=== PATIENT | male | born 1970 | race African-American/Black ===

== ENCOUNTER 2017-04-14 09:53 | Emergency (ER) | payer MEDICAID ==
[~2017-04-14] VITALS: Ht 188 cm; Wt 79.0 kg
[~2017-04-14 09:53] MED LIST: ALBU05; ALBU2.5V13 IH; FLUT1DIS IH; LEVO500T15 PO; MED4 GT; [UNRECOGNIZED DRUG - REMARK]; [UNRECOGNIZED DRUG - REMARK]
[2017-04-14 10:25] VITALS: BP 134/90
== END 2017-04-14 10:55 | disposition home or self-care (01) ==
LOC: ER 10:22
DX: T85.9XXA Unspecified complication of internal prosthetic device, implant and graft, initial encounter (principal); I10 Essential (primary) hypertension; J45.909 Unspecified asthma, uncomplicated; F17.200 Nicotine dependence, unspecified, uncomplicated; F12.10 Cannabis abuse, uncomplicated; Z98.890 Other specified postprocedural states
CPT/HCPCS: 99284; Z7610

== ENCOUNTER 2018-01-06 02:56 | Emergency (ER) | payer MEDICAID ==
[~2018-01-06] VITALS: Ht 188 cm; Wt 77.2 kg
[~2018-01-06 02:56] MED LIST changes: -LEVO500T15 PO; +LEVO500T2 PO
[2018-01-06 03:00] VITALS: BP 117/74
== END 2018-01-06 04:45 | disposition left against medical advice (07) ==
LOC: ER 03:18
DX: Z53.21 Procedure and treatment not carried out due to patient leaving prior to being seen by health care provider (principal)

== ENCOUNTER 2018-01-06 07:29 | Emergency (ER) | payer MEDICAID ==
[~2018-01-06] VITALS: Ht 188 cm; Wt 87.0 kg
[2018-01-06] MEDS ORDERED: LIDOCAINE HCL 1% 20ML VIAL (Pyxis) INJ INFIL ONE (08:00)
[2018-01-06] MEDS ORDERED: TETANUS, DIPHTHERIA, PERTUSSIS VAC/PF 0.5ML (>7YR OLD) IM ONE (08:00)
[2018-01-06 10:01] VITALS: BP 130/81
[2018-01-06] MEDS ORDERED: BACITRACIN ZINC OINT UDPKT TOP ONE (11:30)
== END 2018-01-06 11:43 | disposition home or self-care (01) ==
LOC: ER 07:50
DX: S51.011A Laceration without foreign body of right elbow, initial encounter (principal); J45.909 Unspecified asthma, uncomplicated; Z87.891 Personal history of nicotine dependence; V89.2XXA Person injured in unspecified motor-vehicle accident, traffic, initial encounter; Y93.89 Activity, other specified; Y92.89 Other specified places as the place of occurrence of the external cause; Y99.8 Other external cause status
CPT/HCPCS: 12001; 90471; 90715; 99283; J3490; Z7610

== ENCOUNTER 2018-02-23 10:53 | Emergency (ER) | payer MEDICAID ==
[~2018-02-23 10:53] MED LIST changes: -FLUT1DIS IH; -MED4 GT
[2018-02-23 12:52] VITALS: BP 147/90
== END 2018-02-23 13:11 | disposition home or self-care (01) ==
LOC: ER 13:03
DX: Z48.02 Encounter for removal of sutures (principal); I10 Essential (primary) hypertension; Z87.891 Personal history of nicotine dependence; X58.XXXD Exposure to other specified factors, subsequent encounter
CPT/HCPCS: 99281

== ENCOUNTER 2019-11-18 12:55 | Emergency (ER) | payer MEDICAID ==
[~2019-11-18] VITALS: Ht 188 cm; Wt 82.0 kg
[2019-11-18] MEDS ORDERED: IBUPROFEN 800MG TABLET PO ONE (16:15)
[2019-11-18] MEDS ORDERED: ACETAMINOPHEN 500MG TABLET PO ONE (16:15)
[2019-11-18 17:02] VITALS: BP 132/74
== END 2019-11-18 17:06 | disposition home or self-care (01) ==
LOC: ER 12:55
DX: M76.32 Iliotibial band syndrome, left leg (principal); J45.909 Unspecified asthma, uncomplicated; Z91.81 History of falling; Z90.49 Acquired absence of other specified parts of digestive tract; Z91.09 Other allergy status, other than to drugs and biological substances
CPT/HCPCS: 73502; 99283

== ENCOUNTER 2020-07-08 16:04 | Emergency (ER) | payer MEDICAID ==
[~2020-07-08] VITALS: Ht 188 cm; Wt 84.0 kg
[2020-07-08] MEDS ORDERED: MORPHINE SULFATE 4 MG/ML CPJ (NOT FOR IM USE) IV STA (16:49)
[2020-07-08] MEDS ORDERED: ONDANSETRON HCL 4MG/2ML INJ IV STA (16:49)
[2020-07-08 17:07] LABS: BASOPHILS % 1.1 % (0.0-2.0); EOSINOPHILS % 7.6 % (0.0-5.0); HEMATOCRIT. 39.6 % (42.0-52.0); HEMOGLOBIN. 13.3 g/dL (14.0-18.0); LYMPHOCYTES % 23.3 % (20.0-50.0); MEAN CORPUSCULAR HEMOGLOBIN 29.3 pg (28.0-32.0); MEAN CORPUSCULAR VOLUME 87.7 fL (80.0-94.0); MONOCYTES % 8.6 % (2.0-8.0); NEUTROPHILS % 59.4 % (40.0-76.0); PLATELET 314 x1000/uL (130-400); RED BLOOD CELL COUNT 4.52 mill/uL (4.7-6.1); RED CELL DISTRIBUTION WIDTH 15.4 % (11.6-14.6)
[2020-07-08 17:14] LABS: CHLORIDE 107 mEq/L (98-107)
[2020-07-08 17:21] LABS: PROTHROMBIN TIME 10.3 sec (9.6-11.0)
[2020-07-08] MEDS ORDERED: KETOROLAC 15MG/ML VIAL IV ONE (21:45)
[2020-07-08 22:59] VITALS: BP 142/78
[2020-07-08] MEDS ORDERED: IOHEXOL-350 100 ML BOTTLE ONE (23:19)
== END 2020-07-08 23:00 | disposition home or self-care (01) ==
LOC: ER 16:04 → CANBEDREQ 23:39
DX: R07.9 Chest pain, unspecified (principal); J18.9 Pneumonia, unspecified organism; M25.552 Pain in left hip; M79.669 Pain in unspecified lower leg; F17.200 Nicotine dependence, unspecified, uncomplicated; J45.909 Unspecified asthma, uncomplicated; I10 Essential (primary) hypertension; Z98.890 Other specified postprocedural states
CPT/HCPCS: 36415; 71045; 71275; 73502; 73552; 80053; 83880; 84484; 85025; 85610; 93005; 96374; 96375; 99285; J1885; J2270; J2405; Q9967